=== PATIENT | female | born 1975 | race Caucasian/White ===

== ENCOUNTER 2018-09-04 09:12 | Emergency (ER) | payer MEDICAID ==
[~2018-09-04] VITALS: Ht 172.7 cm; Wt 68.9 kg
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
[2018-09-04] MEDS ORDERED: Hydroxyzine (09:47)
[2018-09-04] MEDS ORDERED: escitalopram oxalate (09:47)
[2018-09-04] MEDS ORDERED: THIAMINE 100MG TABLET ONE (09:58)
[2018-09-04] MEDS ORDERED: THIAMINE 100MG TABLET PO ONE (10:00)
[2018-09-04 10:02] LABS: BASOPHILS # (AUTO) 0.03 x10^3/uL (0-0.1); BASOPHILS % (AUTO) 0 % (0-1); EOSINOPHILS # (AUTO) 0.16 x10^3/uL (0-0.4); EOSINOPHILS % (AUTO) 2 % (1-7); LYMPHOCYTES # (AUTO) 1.91 x10^3/uL (1-3.4); LYMPHOCYTES % (AUTO) 29 % (22-44); MD NO; MEAN CORPUSCULAR HEMOGLOBIN 34.9 pg (27.0-34.8); MEAN CORPUSCULAR HGB CONC 33.6 g/dL (32.4-35.8); MEAN CORPUSCULAR VOLUME 103.9 fL (80-100); MEAN PLATELET VOLUME 7.5 fL (7.4-10.4); MONOCYTES # (AUTO) 0.44 x10^3/uL (0.2-0.8); MONOCYTES % (AUTO) 7 % (2-9); NEUTROPHILS # (AUTO) 4.17 x10^3/uL (1.8-6.8); NEUTROPHILS % (AUTO) 62 % (42-75); PLATELET COUNT 135 x10^3/uL (130-400)
[2018-09-04 10:03] LABS: HCG UR SG 1.004 (1.003-1.030)
--- NOTE | 2018-09-04 10:06 | NUR ---
Pt ambulates with steady gait and balance to restroom. No obvious defecits observed. Pt provided urine sample. Urine sent to lab. Provided pt medicaiton per EMAR. Pt apreciative. NADN. No other needs expressed at this time.
[2018-09-04 10:14] LABS: ALANINE AMINOTRANSFERASE 141 U/L (12-78); ALBUMIN 3.8 g/dL (3.4-5.0); ANION GAP 10 mmol/L (5-15); CALCIUM 8.6 mg/dL (8.5-10.1); CHLORIDE 107 mmol/L (98-107); CREATININE 0.65 mg/dL (0.55-1.02)
[2018-09-04 10:16] LABS: ALKALINE PHOSPHATASE 81 U/L (45-117); BILIRUBIN,TOTAL 0.5 mg/dL (0.2-1.0); TOTAL PROTEIN 7.4 g/dL (6.4-8.2)
[2018-09-04 10:16] LABS: AMPHETAMINE SCREEN, URINE Negative (Negative); BARBITURATE SCREEN, URINE Negative (Negative); BENZODIAZEPINE SCREEN, URINE Negative (Negative); CANNABINOID SCREEN, URINE Positive (Negative); COCAINE SCREEN, URINE Negative (Negative); METHADONE SCREEN, URINE Negative (Negative); OPIATE SCREEN, URINE Negative (Negative)
--- NOTE | 2018-09-04 10:34 | NUR ---
Pt resting on gurney with eyes closed. NADN. No needs expressed. Call light within reach.
--- NOTE | 2018-09-04 10:48 | NUR ---
Pt provided d/c paperwork and community resource lists for alcohol withdrawal and rehab. Pt left with all personal belongings, d/c paperwork, and community resource list. Pt ambulates with steady gait and balance with no obvious defecits to d/c desk. Patient given discharge instructions and they have confirmed that they understand the instructions.
[2018-09-04 10:50] VITALS: BP 89/53
--- NOTE | 2018-09-04 10:51 | NUR ---
Pt notified that SW would be available after 11 pm today and pt could wait in ED lobby to see SW. Pt choose to take resource list from RN and d/c.
== END 2018-09-04 10:53 | disposition home or self-care (01) ==
LOC: ED 10:47
DX: F10.220 Alcohol dependence with intoxication, uncomplicated (principal); F17.200 Nicotine dependence, unspecified, uncomplicated
CPT/HCPCS: 36415; 80053; 80307; 81025; 83735; 85025; 99283

== ENCOUNTER 2019-08-14 23:16 | Emergency (ER) | payer MEDICAID ==
[~2019-08-14] VITALS: Ht 172.7 cm; Wt 82.0 kg
[~2019-08-14 23:16] MED LIST: Hydroxyzine; escitalopram oxalate
--- NOTE | 2019-08-14 23:28 | NUR ---
PT WHEELED BACK TO ROOM, SET UP ON [employer], CALL LIGHT ON LAP, NAD, RESP WNL, P/W/D, VSS, PT IS SPEECH IS SLURRED AND HAS A NOTABLE ETOH ODOR. PT SPEECH IS NOT FOLLWING A COHERENT THOUGHT PROCESS AT THIS TIME. WCTM.
--- NOTE | 2019-08-14 23:32 | NUR ---
[facility] [phone] CALL WHEN PT READY TO DEPART.
[2019-08-14 23:46] LABS: BASOPHILS # (AUTO) 0.02 x10^3/uL (0-0.1); BASOPHILS % (AUTO) 0 % (0-1); EOSINOPHILS # (AUTO) 0.29 x10^3/uL (0-0.4); EOSINOPHILS % (AUTO) 3 % (1-7); LYMPHOCYTES # (AUTO) 4.55 x10^3/uL (1-3.4); LYMPHOCYTES % (AUTO) 54 % (22-44); MD NO; MEAN CORPUSCULAR HEMOGLOBIN 35.8 pg (27.0-34.8); MEAN CORPUSCULAR HGB CONC 33.8 g/dL (32.4-35.8); MEAN PLATELET VOLUME 7.5 fL (7.4-10.4); MONOCYTES # (AUTO) 0.52 x10^3/uL (0.2-0.8); MONOCYTES % (AUTO) 6 % (2-9); NEUTROPHILS # (AUTO) 3.12 x10^3/uL (1.8-6.8); NEUTROPHILS % (AUTO) 37 % (42-75); PLATELET COUNT 241 x10^3/uL (130-400); RED BLOOD COUNT 4.48 x10^6/uL (3.82-5.3); RED CELL DISTRIBUTION WIDTH 13.2 % (9.6-15.2)
[2019-08-14 23:59] LABS: ALANINE AMINOTRANSFERASE 54 U/L (12-78); ALBUMIN 4.1 g/dL (3.4-5.0); ANION GAP 7 mmol/L (5-15); CALCIUM 8.9 mg/dL (8.5-10.1); CHLORIDE 110 mmol/L (98-107); CREATININE 0.69 mg/dL (0.55-1.02)
[2019-08-15 00:03] LABS: ALKALINE PHOSPHATASE 70 U/L (45-117); BILIRUBIN,TOTAL 0.2 mg/dL (0.2-1.0); TOTAL PROTEIN 7.9 g/dL (6.4-8.2)
--- NOTE | 2019-08-15 00:20 | NUR ---
PT RESTING IN GURNEY, EYES CLOSED, PLACED ON 2L O2 NC, NAD, ABC INTACT, CALL LIGHT ON LAP, GIVEN WARM BLANKET, LIGHTS DIMMED FOR COMFORT, WCTM. NOTIFIED OF CRITICAL LAB VALUE
--- NOTE | 2019-08-15 00:43 | NUR ---
PT O2 SAT @ 77%. PUT PT ON 2L NASAL CANNULA. O2 NOW 96%
--- NOTE | 2019-08-15 01:39 | NUR ---
PT RESTING IN GURNEY, RESP HEARD AND WNL ON NC. PT P/W/D, NAD, CALL LIGHT ON LAP, LIGHTS DIMMED, VSS, WCTM. MTF.
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
[2019-08-15 02:32] VITALS: BP 103/65
--- NOTE | 2019-08-15 03:00 | NUR ---
pt resting in gurney, RESP heard and WNL, NAD, P/W/D, eyes closed, WCTM. Call light on bed next to pt, MTF.
--- NOTE | 2019-08-15 03:21 | NUR ---
Patient/Caregiver given discharge instructions and they have confirmed that they understand the instructions. Patient ambulatory with steady gait. Ride called for pt. Pt denies additional questions at this time stating "I just want to get out of here". NAD, P/W/D, RESP WNL, MAEx4, FCS no SOB, ABC intact
== END 2019-08-15 03:39 | disposition home or self-care (01) ==
LOC: ED 08-15 03:15
DX: F10.220 Alcohol dependence with intoxication, uncomplicated (principal); R41.82 Altered mental status, unspecified; Z88.5 Allergy status to narcotic agent; Y90.0 Blood alcohol level of less than 20 mg/100 ml
CPT/HCPCS: 36415; 70450; 72125; 80053; 80307; 85025; 99285